=== PATIENT | female | born 1955 ===

== ENCOUNTER → 2020-07-13 17:27 | Outpatient (CLI) | payer MEDICARE, OTHER, SELFPAY ==
--- NOTE | ~2020-07-13 | XR_ITS ---
XR abdomen/kub 1V DATE: 07/13/2020 17:43 INDICATION: Flank pain. Urinary tract infection. TECHNIQUE: AP projection, 2 views COMPARISON: None FINDINGS: The bowel gas pattern is nonspecific, with no evidence of obstruction. The psoas shadows ar e intact. No visceromegaly is evident. 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 IMPRESSION: Nonspecific abdomen Nonspecific small calcification overlying the right lower pelvis; if there is concern for distal uret eral or ureterovesical junction calculus, consider noncontrast CT abdomen pelvis examination. Reviewed, dictated and finalized at [facility]. Reviewed, dictated and finalized at [facility]. IMPRESSION: Nonspecific abdomen Nonspecific small calcification overlying the right lower pelvis; if there is c oncern for distal ureteral or ureterovesical junction calculus, consider noncon trast CT abdomen pelvis examination.
== END ==
PROVIDERS: PCP Family Medicine; Visit Provider Family Medicine
DX: R35.0 Frequency of micturition (principal); R31.29 Other microscopic hematuria
CPT/HCPCS: 74018

== ENCOUNTER → 2022-12-22 12:47 | Outpatient (CLI) | payer MEDICARE, SELFPAY ==
--- NOTE | ~2022-12-22 | XR_ITS ---
Supine and upright views of the abdomen Clinical history: Kidney stones, bladder pressure COMPARISON: 07/13/2020 Findings: Bowel gas pattern is nonspecific. No evidence for obstruction or free air. No abnormal mass lesion or calcification is seen. Stable degenerative change of the lumbar spine. Impression: No renal stone identified. Reviewed, dictated and finalized at [facility]. CIPAL ENGINEER Impression: No renal stone identified.
--- NOTE | ~2022-12-22 | US_ITS ---
EXAMINATION: US renal BI DATE: 12/22/2022 13:25 INDICATION: Nephrolithiasis. TECHNIQUE: Multiple ultrasound grayscale images of the kidneys were obtained. COMPARISON: None. FINDINGS: The right kidney measures 10.1 x 4.5 x 4.7 cm. The left kidney measures 9.6 x 5.2 x 5.3 cm. The kidne ys demonstrate normal parenchymal echogenicity. There is cortical thinning of the kidneys. There are cysts in the kidneys measuring up to 1.4 cm on the left. There is no hydronephrosis. The bladder is n ormal. IMPRESSION: 1. Cortical thinning of the kidneys. No hydronephrosis. Reviewed, dictated and finalized at [facility]. ICAL INFORMATICS PHYSICIAN
== END ==
PROVIDERS: PCP Physician Assistant; Visit Provider Urology
DX: N20.0 Calculus of kidney (principal)
CPT/HCPCS: 74018; 76775

== ENCOUNTER → 2023-04-02 17:12 | Outpatient (CLI) | payer MEDICARE, SELFPAY ==
--- NOTE | ~2023-04-02 | XR_ITS ---
EXAM: XR knee RT 3V DATE: 04/02/2023 17:29 HISTORY: CHRONIC KNEE PAIN AND SWELLING . COMPARISON: None available. FINDINGS: Slightly decreased mineralization. No fracture or dislocation. No lytic or blastic lesion. Mild medial joint space narrowing. Mild tricompartmental osteophytosis. Quadriceps and patellar enth esopathy. No erosion or periosteal change. Soft tissues within normal limits. Small joint effusion. IMPRESSION: Mild tricompartmental knee osteoarthritis. Reviewed, dictated and finalized at [facility].
== END ==
PROVIDERS: PCP Physician Assistant; Visit Provider Physician Assistant
DX: M79.89 Other specified soft tissue disorders (principal); M17.11 Unilateral primary osteoarthritis, right knee
CPT/HCPCS: 73562

== ENCOUNTER → 2023-12-20 10:19 | Outpatient (CLI) | payer MEDICARE, SELFPAY ==
--- NOTE | ~2023-12-20 | XR_ITS ---
EXAMINATION: XR abdomen/kub 1V INDICATION: Kidney stones TECHNIQUE: Supine views of the abdomen were obtained on three radiographs. COMPARISON: 12/22/2022 FINDINGS: A large volume of colonic stool is present. No urolithiasis is identified. The bowel gas pa ttern is normal. The visualized lung bases are clear. There is severe lumbar spondylosis. IMPRESSION: 1. No urolithiasis identified. Reviewed, dictated and finalized at [facility]. REST BUILDER
--- NOTE | ~2023-12-20 | US_ITS ---
EXAMINATION: US retroperitoneal comp DATE: 12/20/2023 10:55 INDICATION: Nephrolithiasis TECHNIQUE: Multiple ultrasound grayscale images of the kidneys were obtained. COMPARISON: 12/22/2022 FINDINGS: The right kidney measures 10.9 x 5.5 x 6.1 cm. The left kidney measures 10.0 x 4.9 x 4.3 cm. The kidn eys demonstrate normal echogenicity. Bilateral anechoic renal cysts including a 1.5 cm exophytic cyst at the mid right kidney and a 1.3 cm exophytic cyst at the mid left kidney. There is no hydronephros is in either kidney. No stones identified. The bladder is normal. IMPRESSION: 1. Bilateral renal cysts. Otherwise normal kidneys with no hydronephrosis. Reviewed, dictated and finalized at [facility]. NG MACHINE ATTENDANT
== END ==
PROVIDERS: PCP Physician Assistant; Visit Provider Urology
DX: N20.0 Calculus of kidney (principal); N28.1 Cyst of kidney, acquired
CPT/HCPCS: 74018; 76770